=== PATIENT | female | born 1960 | race Caucasian/White ===

== ENCOUNTER 2017-03-30 00:10 | Emergency (ER) | payer OTHER ==
[~2017-03-30] VITALS: Ht 154.9 cm; Wt 71.5 kg
[2017-03-30] MEDS ORDERED: FAMO20 PO (00:13)
[2017-03-30] MEDS ORDERED: PARO20TA24 PO (00:13)
[2017-03-30] MEDS ORDERED: GELATIN SPONGE,ABSORBABLE 12-7 MM TP ONE (01:00)
[2017-03-30] MEDS ORDERED: PERTUSS(ACELL),DIPH,TET VAC/PF 0.5 ML VIAL IM ONE (01:00)
[2017-03-30 01:14] VITALS: BP 133/89
== END 2017-03-30 01:17 | disposition home or self-care (01) ==
LOC: EMS 00:13
DX: S61.306A Unspecified open wound of right little finger with damage to nail, initial encounter (principal); K21.9 Gastro-esophageal reflux disease without esophagitis; Z88.1 Allergy status to other antibiotic agents; W25.XXXA Contact with sharp glass, initial encounter; Y93.89 Activity, other specified; Y92.89 Other specified places as the place of occurrence of the external cause; Y99.8 Other external cause status
CPT/HCPCS: 90471; 90715; 99283

== ENCOUNTER 2019-01-29 20:48 | Emergency (ER) | payer OTHER ==
[~2019-01-29] VITALS: Ht 154.9 cm; Wt 69.1 kg
[~2019-01-29 20:48] MED LIST: FAMO20 PO; PARO20TA24 PO
[2019-01-29] MEDS ORDERED: ASPI81TA39 PO (21:09)
[2019-01-29] MEDS ORDERED: LOVA20 PO (21:09)
[2019-01-29 22:17] VITALS: BP 160/98
== END 2019-01-29 22:20 | disposition home or self-care (01) ==
LOC: EMS 20:49
DX: S05.12XA Contusion of eyeball and orbital tissues, left eye, initial encounter (principal); E78.00 Pure hypercholesterolemia, unspecified; K21.9 Gastro-esophageal reflux disease without esophagitis; F32.9 Major depressive disorder, single episode, unspecified; Z88.1 Allergy status to other antibiotic agents; Y04.0XXA Assault by unarmed brawl or fight, initial encounter; Y93.89 Activity, other specified; Y92.89 Other specified places as the place of occurrence of the external cause; Y99.8 Other external cause status

== ENCOUNTER 2019-02-27 16:37 | Emergency (ER) | payer OTHER ==
[~2019-02-27] VITALS: Ht 154.9 cm; Wt 68.2 kg
[~2019-02-27 16:37] MED LIST changes: +ASPI81TA39 PO; +LOVA20 PO
[2019-02-27] MEDS ORDERED: IBUP-2070 PO (17:20)
[2019-02-27] MEDS ORDERED: LIDOCAINE 1% 10 ML VIAL INJ ONE (19:15)
[2019-02-27] MEDS ORDERED: BUPIVACAINE HCL/PF 0.25% 10 ML VIAL INJ ONE (19:15)
[2019-02-27 20:05] VITALS: BP 126/81
== END 2019-02-27 20:45 | disposition home or self-care (01) ==
LOC: EMS 16:37
DX: S52.501A Unspecified fracture of the lower end of right radius, initial encounter for closed fracture (principal); S52.611A Displaced fracture of right ulna styloid process, initial encounter for closed fracture; R03.0 Elevated blood-pressure reading, without diagnosis of hypertension; E78.00 Pure hypercholesterolemia, unspecified; K21.9 Gastro-esophageal reflux disease without esophagitis; F32.9 Major depressive disorder, single episode, unspecified; Z88.1 Allergy status to other antibiotic agents; Z79.82 Long term (current) use of aspirin; Z79.899 Other long term (current) drug therapy; W01.0XXA Fall on same level from slipping, tripping and stumbling without subsequent striking against object, initial encounter; Y93.89 Activity, other specified; Y92.89 Other specified places as the place of occurrence of the external cause; Y99.8 Other external cause status
CPT/HCPCS: 25605; 73110; 73130; 99284; J3490 ×2